=== PATIENT | male | born 1985 ===

== ENCOUNTER 2017-05-09 09:18 | Day surgery (SDC) | payer SELFPAY ==
[2017-05-05 14:04] VITALS: BMI 33.5
[2017-05-09] MEDS ORDERED: Lidocaine 1% Inj (20ml) ONE (09:34)
[2017-05-09] MEDS ORDERED: Bacitracin Ointment 30 GM TUBE ONE (09:34)
[2017-05-09] MEDS ORDERED: Propofol 10 mg/ml Inj (20 ML) ONE (09:37)
[2017-05-09] MEDS ORDERED: Etomidate 20 mg/10ml Inj IV ONE (09:37)
[2017-05-09] MEDS ORDERED: Succinylcholine 200 mg/10 ml Inj IV ONE (09:39)
[2017-05-09] MEDS ORDERED: Lidocaine 4% (Laryng-O-Jet) Kit MM ONE (09:41)
[2017-05-09] MEDS ORDERED: Ropivacaine 0.5% 30ML IV ONE (09:44)
[2017-05-09] MEDS ORDERED: Lactated Ringer's 1,000 ML IV ONE ×2 (09:56→13:20)
[2017-05-09] MEDS ORDERED: Midazolam 2 MG/2 ML VIAL ONE (10:15)
[2017-05-09] MEDS ORDERED: Dexamethasone 4 mg/1 ml ONE (10:56)
[2017-05-09] MEDS ORDERED: Lidocaine/Epi 1% 1:100000 20 ML IJ ONE (11:25)
[2017-05-09] MEDS ORDERED: Lactated Ringer's 1,000 ML IV SCH (12:13)
[2017-05-09] MEDS ORDERED: HYDROmorphone 0.5 mg/0.5 ml ISec IVP PRN (12:13)
--- NOTE | 2017-05-09 12:15 | PCM.ANESB1 ---
Interscalene Block - Brachial Plexus Date of Procedure: 05/09/17 Anesthesiologist: Katherin Pre-Procedure Diagnosis: Left shoulder impingment syndrome Post-Procedure Diagnosis: same Procedure Performed: Interscalene Block of Brachial Plexus Left - Procedure Interscalene Block of Brachial Plexus: This procedure was explained to the patient that it is for post-operative pain management. Consent was obtained after a thorough discussion with the patient regarding the benefits and possible complications of local anesthetic block of the Brachial Plexus at the Interscalene area. The patient was brought to the Operating Room and standard monitors were applied. Time out was held with the circulating nurse to confirm the correct surgery and appropriate block. After applying Oxygen by nasal cannula and administering IV Sedation, the patient's head was gently rotated away from the ___left___operative shoulder and the anterior scalene groove was carefully palpated. The ultrasound transducer was then applied to the skin in the transverse plane and the brachial plexus was visualized lateral to the carotid artery and in between the anterior and middle scalene muscles. After identification,the anterior lateral portion of the neck was prepped with Betadine solution three times and Lidocaine 1% was injected subcutaneously for topical analgesia. At this point, a # 22 gauge Stimuplex 2 inches insulated needle was inserted into the interscalene groove and directed in a caudal and midline direction. The needle was inserted lateral to the ultrasound transducer in-plane towards the brachial plexus in a [id number] direction. Needle advancement was performed carefully under direct ultrasound visualization. Nerve stimulator was used and twitched of the affected extremity including the hand brachialis muscles, biceps and the deltoid was obtained at a current of ___0.4__MA. After repeated negative aspiration,___2__cc of__0.5%___, ropivicaine were injected and this was followed with ___28__cc of ___0.5__% ropivicaine . Under ultrasound guidance the local anesthetics were observed surrounding the roots of the brachial plexus. The needle was removed intact and sterile dressing was applied. The patient had stable vital signs, was conscious and in no apparent distress. The patient tolerated the interscalene block of the bracheal plexus well with stable vital signs and was prepared for subsequent surgery.
--- NOTE | 2017-05-09 12:21 | PCM.SURG1 ---
Surgeon's Initial Post Op Note - Surgeon's Notes Surgeon: Emmanuelle Ritchie MD Integration Consultant: Farida Miller PA-C Type of Anesthesia: General Endo Pre-Operative Diagnosis: Left shoulder labral tear, impingement syndrome Operative Findings: see op report Post-Operative Diagnosis: same as pre-op dx Operation Performed: Left shoulder arthroscopy, debriedement, subacromial decompression, synovectomy Specimen/Specimens Removed: none Estimated Blood Loss: EBL {In ML}: 5 Date of Surgery/Procedure: 05/09/17 Time of Surgery/Procedure: 11:00
[2017-05-09] MEDS ORDERED: Oxycodone/Acetaminophen 5/325 mg Tab PO PRN (12:22)
[2017-05-09 13:32] VITALS: RESP 18
[2017-05-09 14:22] VITALS: TEMP 98.9
[2017-05-09 15:15] VITALS: BP 132/72; PULSE 91; O2SAT 98
--- NOTE | 2017-05-09 23:56 | OP ---
DATE OF OPERATION: 05/09/2017 ATTENDING PHYSICIAN: Emmanuelle Ritchie MD BEAM MACHINE OPERATOR: Farida Miller PA-C PREOPERATIVE DIAGNOSES: 1. Left shoulder impingement. 2. Synovitis. 3. Acromioclavicular joint arthritis. POSTOPERATIVE DIAGNOSES: 1. Left shoulder anterior labral tear. 2. Posterior-superior labral tear. 3. Subacromial bursitis. 4. Impingement. 5. Acromioclavicular joint arthritis. PROCEDURES: 1. Left shoulder arthroscopic extensive debridement, 29200. 2. Decompression, acromioplasty, 15086. 3. Distal clavicle excision, 20041. ANESTHESIA TYPE: General with interscalene block. ESTIMATED BLOOD LOSS: 50 mL. SPECIMENS: None. CLOSURE: Primary. FLUIDS: See anesthesia sheet. ANTIBIOTICS: See anesthesia sheet. COMPLICATIONS: None. INDICATIONS: After failing a course of nonoperative therapy, the patient elected to undergo the above procedures. In the office the risks and possible complications of the shoulder arthroscopy were discussed in detail with the patient. These risks include, but are not limited to, continued pain, lack of motion, infection, vascular injury, and nerve injury including axillary nerve dysfunction, reflex sympathetic dystrophy, compartment syndrome, limb loss, and . The patient expressed an understanding of the risks and possible benefits of the procedure, and was also made aware of the alternatives to surgery. An informed consent was obtained, and was checked immediately preop. Procedure 1: The patient was correctly identified in the holding area and the left shoulder was marked with the surgeon-s initials. The patient was transported to the operating room and placed in the supine position and general anesthesia was obtained and regional interscalene block. A preoperative orthopedic examination revealed a passive range of motion of forward flexion to 170 degrees, external rotation of 60 degrees and abduction of 120 degrees. Stability examination revealed no instability. Procedure 2: The patient was then placed in a beach chair position utilizing the beach chair positioning device. The patient-s head was stabilized and the indicated upper extremity was prepped and draped in the standard surgical fashion. The anatomic structures were outlined with a skin marker, and 1% lidocaine with epinephrine was injected into the posterior, anterior, and lateral portal areas. A #21-gauge spinal needle was placed in the glenohumeral joint from the posterior portal and 10 mL of sterile saline was injected into the glenohumeral joint. Return of fluid indicated correct needle placement into the joint. The needle was then withdrawn and a #11 blade was used to make a 1-cm incision at the posterior portal site. Next, the arthroscopic blunt trocar was inserted into the glenohumeral joint. A #21-gauge spinal needle was placed through the anterior rotator interval, and the anterior portal was made with a #11 blade after the spinal needle was withdrawn. A 7-mm cannula was then inserted after the skin incision was made and the arthroscopic probe was then used to examine the internal structures of the glenohumeral joint. With the shoulder in abducted and externally rotated position, the articular surface of the rotator cuff was visualized. The arthroscope and probe were then switched from posterior to anterior. The posterior labrum, posterior capsule, and biceps anchor reflection was then inspected with the arthroscope in the anterior portal position. Examination of the glenohumeral joint revealed: 1. Anterior labral tear. 2. Posterior-superior labral tear Using the probe, the labrum was circumferentially assessed for tear. Tears were note at anterior labral and posterior-superior labral. Using the 4.0 motorized shaver and radiofrequency probe, the torn edges of the labrum were debrided until stable rim, preventing any further propagation. At this point, the arthroscope was withdrawn from the glenohumeral joint and subacromial space was then entered using a blunt trocar. Gentle resistance sweeping against the coracoacromial ligament confirmed proper placement of the sheath and the arthroscope was inserted. A 1-cm incision was made at the inferolateral acromial area to create the lateral portal. Examination of the subacromial space revealed: 1. Extensive bursitis. 2. Impingement. 3. AC joint resection. Visualization of the subacromial space was difficult due to excessive bursitis. A bursectomy was performed using a combination of radiofrequency device as well as a 4.0-mm full radius motorized shaver. The soft tissue on the undersurface of the acromion was debrided utilizing the 4.0-mm full radius shaver and the radiofrequency device was used for hemostasis. At this point, the coracoacromial ligament was released with the radiofrequency device and the acromial branch of the thoracoacromial artery was coagulated with the same instrument. Subacromial decompression was performed with a 4.0-mm conical dave using both the medial portal and the "cutting-block" precision acromioplasty technique from the posterior portal. The undersurface of the acromion was resected to a flat, smooth surface to allow unrestricted excursion of the rotator cuff. After adequate subacromial decompression, attention was then turned to the acromioclavicular joint which was localized using a 21-gauge spinal needle. A single 1-cm incision was placed on the superior aspect of the acromioclavicular joint, and the arthroscope and radiofrequency device were then inserted. Utilizing the radiofrequency device for hemostasis as well as tissue ablation, the perimeter of the distal clavicle was denuded of soft tissue. Care was taken to preserve the superoposterior soft tissue ligamentous attachments to the distal clavicle. A 4.0-mm conical dave was introduced through the superior portal and 7 mm of distal clavicle was excised. A 1 mm of medial acromion was also resected. All resected bone was planed to a smooth, flat surface, and was checked by arthroscopic visualization from the superior AC joint portal. The subacromial space was then irrigated with sterile saline, and closure was instituted with sutures. A dressing was placed consisting of Xeroform, 4 x 4's, ABD pads, and tape. The patient was placed in a sling with an ABD pad in the axilla. The patient was then placed in a supine position and extubated without incident. The patient was transferred to the recovery room in stable condition, having tolerated the procedure well. The patient is given appropriate postop rehab protocol. Postoperatively, the patient will be started on Phase I shoulder rehab as well as Codman's exercises and will advance rapidly to regain full range of motion and optimize shoulder function. Followup will be in 10 days in the office. During this procedure, I was assisted by Farida Miller PA-C, who assisted in positioning the patient on the operating room table as well as transferring the patient from the operating room table to the recovery room stretcher. In addition, Farida Miller PA-C, assisted me during the actual operative procedure by positioning the patient's extremity to allow for easier arthroscopic access to all areas of the joint. The presence of Farida Miller PA-C, as my operative bacteriology research assistant, was medically necessary to ensure the utmost safety of the patient in the pre, intra-, and postoperative periods. Emmanuelle Ritchie MD [facility]
== END 2017-05-09 15:59 | disposition home or self-care (01) ==
LOC: H.OPSURG 09:18
PROVIDERS: ATTEND Orthopaedic Surgery
DX: M75.42 Impingement syndrome of left shoulder (principal); M65.812 Other synovitis and tenosynovitis, left shoulder; M13.812 Other specified arthritis, left shoulder
CPT/HCPCS: 29823; 29824; 29826; J0171; J0330; J0690; J1100; J2001; J2250; J2405; J2704; J2765; J3010; J7120